=== PATIENT | male | born 2000 | race Caucasian/White ===

== ENCOUNTER → 2020-11-17 10:18 | Outpatient (BNVA) | payer OTHER, SELFPAY | PROVIDERS: PCP Nurse Practitioner; Visit Provider Nurse Practitioner Family | DX: Z20.822 Contact with and (suspected) exposure to COVID-19 (principal) | CPT/HCPCS: 87635 ==

== ENCOUNTER 2021-07-04 12:53 | Emergency (ER) | payer OTHER, SELFPAY ==
[2021-07-04 13:27] VITALS: BP 104/61; PULSE 106; RESP 16; TEMP 37.1; O2SAT 98; BMI 17.6
--- NOTE | 2021-07-04 13:56 | CTR_ITS ---
PROCEDURE INFORMATION: Exam: CT Abdomen And Pelvis With Contrast Exam date and time: 07/04/2021 2:11 PM Age: 20 years old Clinical indication: Nausea and vomiting and other: Diarrhea; Additional info: N/v/fever/diarrhea abdominal pain TECHNIQUE: Imaging protocol: Computed tomography of the abdomen and pelvis with contrast. Radiation optimization: All CT scans at this facility use at least one of these dose optimization techniques: automated exposure control; mA and/or kV adjustment per patient size (includes targeted exams where dose is matched to clinical indication); or iterative reconstruction. Contrast material: OMNIPAQUE 300; Contrast volume: 50 ml; Contrast route: INTRAVENOUS (IV); COMPARISON: No relevant prior studies available. RADIATION DOSE METRICS: Total DLP (mGy-cm): 674.57 FINDINGS: Liver: Normal. No mass. Gallbladder and bile ducts: Normal. No calcified stones. No ductal dilation. Pancreas: Normal. No ductal dilation. Spleen: Normal. No splenomegaly. Adrenal glands: Normal. No mass. Kidneys and ureters: No hydronephrosis. No mass. Stomach and bowel: No obstruction. No inflammatory changes. Evaluation somewhat limited by lack of enteric contrast. Appendix: No evidence of appendicitis. Intraperitoneal space: No free air. No significant fluid collection. Vasculature: Unremarkable. No abdominal aortic aneurysm. Lymph nodes: Unremarkable. No enlarged lymph nodes. Urinary bladder: Unremarkable as visualized. Reproductive: Unremarkable as visualized. Bones/joints: Unremarkable. No acute fracture. Soft tissues: Unremarkable. CT/CT abdomen pelvis w con* [id number] IMPRESSION: No acute findings.
--- NOTE | 2021-07-04 13:57 | ED_ITS ---
Documented by User: Coni Sparks PA-C 07/04/21 15:13 HPI - Abdominal Pain General: Chief Complaint: Abdominal Pain Stated Complaint: Urgent care sent over for possible appendicitis Time Seen by Provider: 07/04/21 13:41 Source: patient Mode of arrival: ambulatory Limitations: no limitations History of Present Illness: 20-year-old male presents to the ER today for abdominal pain, nausea, vomiting x16 hours. Patient reports this started about 6 PM last night. Patient reports he has vomited multiple times since last night. He has not eaten anything since yesterday afternoon. Patient reports abdominal pain is located in the center of his abdomen but denies any radiation. Patient reports he has watery diarrhea. Denies any sick contacts. Patient has not take anything for symptoms at this time. Patient reports a fever of 100.7 this morning. Patient was seen at an urgent care and sent to the ER to rule out appendicitis. Review of Systems General: Reports: 10 or more systems reviewed and unremarkable except in HPI and below PFSH ED 2 PFSH: Social History Smoking and tobacco status: never smoked Physical Exam Const: COMMON NORMALS: no acute distress, average body habitus, patient or iented x3 and no limitations Neck/C-Spine: COMMON NORMALS: full ROM and no lymphadenopathy Resp: COMMON NORMALS: normal respiratory effort, No retractions and clear to auscultation bilaterally AUSCULTATION: clear to auscultation bilaterally Cardio: COMMON NORMALS: regular rate and regular rhythm RATE: regular rate RHYTHM: regular rhythm HEART SOUNDS: no murmurs GI: COMMON NORMALS: Soft to palpation and No hepatosplenomegaly present INSPECTION: Yes normal to inspection AUSCULTATION: Yes normoactive bowel sounds PALPATION: Yes Soft to palpation, Yes Tenderness to palpation present (GI) (mild diffuse), No Guarding due to palpation present (GI), Yes No hepatosplenomegaly present and Yes Other GI palpation findings present (Negative psoas, negative obturator, negative foot tap. No rebound tenderne) : COMMON NORMALS: Yes no CVA tenderness BLADDER/KIDNEY EXAM: Yes no CVA tenderness Back/Pelvis: COMMON NORMALS: no CVA tenderness Extremity: COMMON NORMALS: full ROM Neuro: COMMON NORMALS: patient oriented x3 Psych: COMMON NORMALS: mental status grossly normal Skin: COMMON NORMALS: no rashes or lesions noted GENERAL SKIN EXAM: no rashes or lesions noted Course ED course: 20-year-old male presents to the ER today with abdominal pain that started last night along with nausea, vomiting, diarrhea. Patient was seen at urgent care and they sent him to the ER for evaluation of appendicitis. Patient reports a temp of 100.7 today. He reports multiple episodes of vomiting and watery diarrhea. Patient reports his abdominal pain is located in the center of his abdomen and denies any radiating pain. Patient reports pain is slightly worse with movement. We will get labs and a CT of the abdomen pelvis. Vital Signs: Vital signs: Vital Signs Temperature 98.8 F 07/04/21 13:27 Pulse Rate 93 07/04/21 15:25 Respiratory Rate 20 H 07/04/21 15:25 Blood Pressure 116/68 07/04/21 15:25 Pulse Oximetry 98 07/04/21 15:25 MDM - Abdominal Pain Medical Decision Making 20-year-old male presents to the ER today for nausea, vomiting, abdominal pain, fevers x16 hours. Patient reports this started at 6 PM last night. He has had multiple episodes of vomiting and watery diarrhea. Patient reports a low-grade temp of 100.7 this morning. Patient was seen in urgent care and sent here to rule out appendicitis. CT abdomen and pelvis done in the ER is normal at this time. Labs are mostly unremarkable. Patient has a slightly bumped CRP however that is likely related to the viral illness. Otherwise mostly unremarkable. Discussed with patient likely this is viral. Bananas rice applesauce toast, brat diet recommended. Push clear fluids and/or Gatorade to rehydrate. Follow- up with PCP in 2 to 3 days if no improvement. Return to the ER with new or worsening symptoms. Patient be given Zofran to take home for nausea as needed. Patient verbalized understanding and is in agreement with the treatment plan. Lab Data : 07/04/21 13:58 07/04/21 13:58 Labs/Radiology: Radiology Impressions Abdomen/Pelvis CT 07/04/21 13:56 IMPRESSION: No acute findings. Laboratory Results WBC 9.9 10^3/uL (4.5-13.0) 07/04/21 13:58 RBC 5.88 10^6/uL (4.1-5.3) H 07/04/21 13:58 Hgb 17.4 g/dL (11.7-16.6) H 07/04/21 13:58 Hct 51.1 % (42.0-52.0) 07/04/21 13:58 MCV 86.9 fl (80-94) 07/04/21 13:58 MCH 29.6 pg (28.0-34.0) 07/04/21 13:58 MCHC 34.1 g/dL (30.0-36.0) 07/04/21 13:58 RDW 12.4 % (12.1-15.1) 07/04/21 13:58 Plt Count 217 10^3/cmm (130-400) 07/04/21 13:58 MPV 10.2 fL (7.4-10.4) 07/04/21 13:58 Neut % (Auto) 89.0 % 07/04/21 13:58 Lymph % (Auto) 2.7 % 07/04/21 13:58 [place] % (Auto) 7.6 % 07/04/21 13:58 Eos % (Auto) 0.1 % 07/04/21 13:58 Baso % (Auto) 0.2 % 07/04/21 13:58 Neut # (Auto) 8.79 10^3/uL (1.8-8.0) H 07/04/21 13:58 Lymph # (Auto) 0.3 10^3/uL (1.5-6.5) L 07/04/21 13:58 [place] # (Auto) 0.8 10^3/uL (0.2-0.9) 07/04/21 13:58 Eos # (Auto) 0.0 10^3/uL (0.0-0.8) 07/04/21 13:58 Baso # (Auto) 0.0 10^3/uL (0.0-0.1) 07/04/21 13:58 Nucleated RBC % (auto) 0 % 07/04/21 13:58 Nucleated RBCs # 0.0 /100WBC 07/04/21 13:58 Sodium 140 mmol/L (136-145) 07/04/21 13:58 Potassium 3.7 mmol/L (3.5-5.1) 07/04/21 13:58 Chloride 104 mmol/L (98-107) 07/04/21 13:58 Carbon Dioxide 24 mmol/L (22-29) 07/04/21 13:58 Anion Gap 15.7 (5-19) 07/04/21 13:58 BUN 16 mg/dL (6-20) 07/04/21 13:58 Creatinine 0.9 mg/dL (0.7-1.2) 07/04/21 13:58 GFR Calculation 107.6 mL/min (90-130) 07/04/21 13:58 Glucose 124 mg/dL (65-115) H 07/04/21 13:58 Calculated Osmolality 293 mOsm/kg (285-295) 07/04/21 13:58 Calcium 9.0 mg/dL (8.5-10.5) 07/04/21 13:58 Total Bilirubin 0.6 mg/dL (0.15-1.2) 07/04/21 13:58 AST 10 U/L (0-40) 07/04/21 13:58 ALT 20 U/L (0-41) 07/04/21 13:58 Alkaline Phosphatase 47 IU/L (40-130) 07/04/21 13:58 C-Reactive Protein 21.5 mg/L (0.0-4.9) H 07/04/21 13:58 Total Protein 5.0 g/dL (6.6-8.7) L 07/04/21 13:58 Albumin 3.3 g/dL (3.5-5.2) L 07/04/21 13:58 Globulin 1.7 g/dL (1.3-4.6) 07/04/21 13:58 Lipase 22 U/L (13-60) 07/04/21 13:58 Urine Color Yellow (Yellow) 07/04/21 15:20 Urine Appearance Clear (CLEAR) 07/04/21 15:20 Urine pH 5 (5-7) 07/04/21 15:20 Ur Specific [place] 1.020 (1.005-1.030) 07/04/21 15:20 Urine Protein Trace (Negative) 07/04/21 15:20 Urine Glucose (UA) Norm (Normal) 07/04/21 15: Urine Ketones Negative (Negative) 05/15/22 15:20 Urine Blood Neg (Negative) 07/04/21 15:20 Urine Nitrate Negative (Negative) 07/04/21 15:20 Urine Bilirubin 1+ (Negative) H 07/04/21 15:20 Urine Urobilinogen Norm mg/dL (Negative) 07/04/21 15:20 Ur Leukocyte Esterase Negative (Negative) 07/04/21 15:20 Urine RBC None /hpf (0-2) 07/04/21 15:20 Urine WBC None /hpf (0-5) 07/04/21 15:20 Ur Squamous Epith Cells Rare /hpf (0-5) 07/04/21 15:20 Amorphous Sediment Not Reportable 07/04/21 15:20 Urine Bacteria Trace /hpf (NONE) 07/04/21 15:20 Urine Mucus 2+ /hpf 07/04/21 15:20 Critical Care Time Critical Care Time: Critical Care Time: No Discharge Plan Discharge Patient Disposition: Home Clinical Impression: Gastroenteritis Condition: Stable Prescriptions: New ondansetron HCl 4 mg tablet 4 mg PO Q8H PRN (Reason: nausea and vomiting) 3 Days 0RF Discharge Orders: Discharge ED (Routine); Ordered 07/04/21 Ordered By: Coni Sparks Discharge Diet: Advance as tolerated Discharge Activity: Increase activity as tolerated Activity Restrictions/Additional Instructions: Take Zofran as needed for nausea. Brat diet recommended. Bananas rice applesauce toast. Gage diet. Push fluids as tolerated, Gatorade and water recommended. Avoid sugary drinks like sodas. Follow-up with PCP in 3 to 5 days if no improvement. Do not take any antidiarrheals. Return to the ER with new or worsening symptoms. Stand Alone Forms: Work/School Release Coding Level of Care Code ED Spanish Instructor for Chg Fwd Exam Comprehensive Documented by User: Adriano Castro MD 07/05/21 23:08 HPI - Abdominal Pain General: Chief Complaint: Abdominal Pain Stated Complaint: Urgent care sent over for possible appendicitis Time Seen by Provider: 07/04/21 13:41 [facility] ED PFS: Social History Smoking and tobacco status: never smoked Course Vital Signs: Vital signs: Vital Signs Temperature 98.8 F 07/04/21 13:27 Pulse Rate 93 07/04/21 15:25 Respiratory Rate 20 H 07/04/21 15:25 Blood Pressure 116/68 07/04/21 15:25 Pulse Oximetry 98 07/04/21 15:25 MDM - Abdominal Pain Medical Decision Making 20-year-old male presents to the ER today for nausea, vomiting, abdominal pain, fevers x16 hours. Patient reports this started at 6 PM last night. He has had multiple episodes of vomiting and watery diarrhea. Patient reports a low-grade temp of 100.7 this morning. Patient was seen in urgent care and sent here to rule out appendicitis. CT abdomen and pelvis done in the ER is normal at this time. Labs are mostly unremarkable. Patient has a slightly bumped CRP however that is likely related to the viral illness. Otherwise mostly unremarkable. Discussed with patient likely this is viral. Bananas rice applesauce toast, brat diet recommended. Push clear fluids and/or Gatorade to rehydrate. Follow- up with PCP in 2 to 3 days if no improvement. Return to the ER with new or worsening symptoms. Patient be given Zofran to take home for nausea as needed. Patient verbalized understanding and is in agreement with the treatment plan. Dr. Castro - Patient evaluation, diagnosis, and management was performed independe ntly by Coni Sparks. I did not personally see the patient nor staff the patient with patient's provider. I did review the patient's note today and I believe this note is consistent. Lab Data : 07/04/21 13:58 07/04/21 13:58 Labs/Radiology: Radiology Impressions Abdomen/Pelvis CT 07/04/21 13:56 IMPRESSION: No acute findings. Laboratory Results WBC 9.9 10^3/uL (4.5-13.0) 07/04/21 13:58 RBC 5.88 10^6/uL (4.1-5.3) H 07/04/21 13:58 Hgb 17.4 g/dL (11.7-16.6) H 07/04/21 13:58 Hct 51.1 % (42.0-52.0) 07/04/21 13:58 MCV 86.9 fl (80-94) 07/04/21 13:58 MCH 29.6 pg (28.0-34.0) 07/04/21 13:58 MCHC 34.1 g/dL (30.0-36.0) 07/04/21 13:58 RDW 12.4 % (12.1-15.1) 07/04/21 13:58 Plt Count 217 10^3/cmm (130-400) 07/04/21 13:58 MPV 10.2 fL (7.4-10.4) 07/04/21 13:58 Neut % (Auto) 89.0 % 07/04/21 13:58 Lymph % (Auto) 2.7 % 07/04/21 13:58 [place] % (Auto) 7.6 % 07/04/21 13:58 Eos % (Auto) 0.1 % 07/04/21 13:58 Baso % (Auto) 0.2 % 07/04/21 13:58 Neut # (Auto) 8.79 10^3/uL (1.8-8.0) H 07/04/21 13:58 Lymph # (Auto) 0.3 10^3/uL (1.5-6.5) L 07/04/21 13:58 [place] # (Auto) 0.8 10^3/uL (0.2-0.9) 07/04/21 13:58 Eos # (Auto) 0.0 10^3/uL (0.0-0.8) 07/04/21 13:58 Baso # (Auto) 0.0 10^3/uL (0.0-0.1) 07/04/21 13:58 Nucleated RBC % (auto) 0 % 07/04/21 13:58 Nucleated RBCs # 0.0 /100WBC 07/04/21 13:58 Sodium 140 mmol/L (136-145) 07/04/21 13:58 Potassium 3.7 mmol/L (3.5-5.1) 07/04/21 13:58 Chloride 104 mmol/L (98-107) 07/04/21 13:58 Carbon Dioxide 24 mmol/L (22-29) 07/04/21 13:58 Anion Gap 15.7 (5-19) 07/04/21 13:58 BUN 16 mg/dL (6-20) 07/04/21 13:58 Creatinine 0.9 mg/dL (0.7-1.2) 07/04/21 13:58 GFR Calculation 107.6 mL/min (90-130) 07/04/21 13:58 Glucose 124 mg/dL (65-115) H 07/04/21 13:58 Calculated Osmolality 293 mOsm/kg (285-295) 07/04/21 13:58 Calcium 9.0 mg/dL (8.5-10.5) 07/04/21 13:58 Total Bilirubin 0.6 mg/dL (0.15-1.2) 07/04/21 13:58 AST 10 U/L (0-40) 07/04/21 13:58 ALT 20 U/L (0-41) 07/04/21 13:58 Alkaline Phosphatase 47 IU/L (40-130) 07/04/21 13:58 C-Reactive Protein 21.5 mg/L (0.0-4.9) H 07/04/21 13:58 Total Protein 5.0 g/dL (6.6-8.7) L 07/04/21 13:58 Albumin 3.3 g/dL (3.5-5.2) L 07/04/21 13:58 Globulin 1.7 g/dL (1.3-4.6) 07/04/21 13:58 Lipase 22 U/L (13-60) 07/04/21 13:58 Urine Color Yellow (Yellow) 07/04/21 15:20 Urine Appearance Clear (CLEAR) 07/04/21 15:20 Urine pH 5 (5-7) 07/04/21 15:20 Ur Specific [place] 1.020 (1.005-1.030) 07/04/21 15:20 Urine Protein Trace (Negative) 07/04/21 15:20 Urine Glucose (UA) Norm (Normal) 07/04/21 15:20 Urine Ketones Negative (Negative) 07/04/21 15:20 Urine Blood Neg (Negative) 07/04/21 15:20 Urine Nitrate Negative (Negative) 07/04/21 15:20 Urine Bilirubin 1+ (Negative) H 07/04/21 15:20 Urine Urobilinogen Norm mg/dL (Negative) 07/04/21 15:20 Ur Leukocyte Esterase Negative (Negative) 07/04/21 15:20 Urine RBC None /hpf (0-2) 07/04/21 15:20 Urine WBC None /hpf (0-5) 07/04/21 15:20 Ur Squamous Epith Cells Rare /hpf (0-5) 07/04/21 15:20 Amorphous Sediment Not Reportable 07/04/21 15:20 Urine Bacteria Trace /hpf (NONE) 07/04/21 15:20 Urine Mucus 2+ /hpf 07/04/21 15:20 Discharge Plan Discharge Patient Disposition: Home Clinical Impression: Gastroenteritis Condition: Stable Prescriptions: New ondansetron HCl 4 mg tablet 4 mg PO Q8H PRN (Reason: nausea and vomiting) 3 Days 0RF Discharge Orders: Discharge ED (Routine); Ordered 07/04/21 Ordered By: Coni Sparks Discharge Diet: Advance as tolerated Discharge Activity: Increase activity as tolerated Activity Restrictions/Additional Instructions: Take Zofran as needed for nausea. Brat diet recommended. Bananas rice applesauce toast. Gage diet. Push fluids as tolerated, Gatorade and water r ecommended. Avoid sugary drinks like sodas. Follow-up with PCP in 3 to 5 days if no improvement. Do not take any antidiarrheals. Return to the ER with new or worsening symptoms. Stand Alone Forms: Work/School Release Coding Level of Care Code ED Spanish Instructor for [employer] Fwd Exam Comprehensive
[2021-07-04 14:11] LABS: Basophils % 0.2 %; Eosinophils % 0.1 %; Hematocrit 51.1 % (42.0-52.0); Hemoglobin 17.4 g/dL (11.7-16.6); Lymphocytes # 0.3 10^3/uL (1.5-6.5); Lymphocytes % 2.7 %; Mean Corpuscular HGB Conc 34.1 g/dL (30.0-36.0); Mean Corpuscular Hemoglobin 29.6 pg (28.0-34.0); Mean Corpuscular Volume 86.9 fl (80-94); Mean Platelet Volume 10.2 fL (7.4-10.4); Monocytes # 0.8 10^3/uL (0.2-0.9); Monocytes % 7.6 %; Neutrophils # 8.79 10^3/uL (1.8-8.0); Nucleated Red Blood Cells % 0 %; Platelet Count 217 10^3/cmm (130-400); Red Blood Count 5.88 10^6/uL (4.1-5.3); Red Cell Distribution Width 12.4 % (12.1-15.1); White Blood Count 9.9 10^3/uL (4.5-13.0)
[2021-07-04] MEDS: iohexol 300 mg/mL 100 mL Btl IV (14:12)
[2021-07-04 14:32] LABS: Alanine Aminotransferase 20 U/L (0-41); Albumin Level 3.3 g/dL (3.5-5.2); Alkaline Phosphatase 47 IU/L (40-130); Anion Gap 15.7 (5-19); Aspartate Amino Transferase 10 U/L (0-40); Blood Urea Nitrogen 16 mg/dL (6-20); C Reactive Protein 21.5 mg/L (0.0-4.9); Carbon Dioxide 24 mmol/L (22-29); Chloride 104 mmol/L (98-107); Globulin 1.7 g/dL (1.3-4.6); Glomerular Filtration Rate 107.6 mL/min (90-130); Glucose 124 mg/dL (65-115); Lipase 22 U/L (13-60); Osmolality Calculated 293 mOsm/kg (285-295); Potassium 3.7 mmol/L (3.5-5.1); Sodium 140 mmol/L (136-145); Total Bilirubin 0.6 mg/dL (0.15-1.2)
[2021-07-04 15:25] VITALS: BP 116/68; PULSE 93; RESP 20; O2SAT 98
[2021-07-04 15:42] LABS: Add Urine Microscopic? YES; Bilirubin Urine 1+ (Negative); Blood Urine Neg (Negative); Glucose Urine UA Norm (Normal); Ketones Urine Negative (Negative); Leukocyte Esterase Urine Negative (Negative); Nitrate Urine Negative (Negative); Protein Urine Trace (Negative); Urine Appearance Clear (CLEAR); Urine Color Yellow (Yellow); Urobilinogen Urine Norm (Negative); pH Urine 5 (5-7)
[2021-07-04 15:44] LABS: Bacteria Urine TRACE /hpf; Mucus Urine 2+ /hpf; Squamous Epithelial Cell Urine RARE /hpf (0-5)
[2021-07-04 15:45] LABS: Add Urine Culture? No
== END 2021-07-04 15:28 | disposition home or self-care (01) ==
PROVIDERS: Emergency Medicine; Emergency Provider Physician Assistant
DX: K52.9 Noninfective gastroenteritis and colitis, unspecified (principal)
CPT/HCPCS: 74177; 80053; 81001; 83690; 85025; 86140; 99283; Q9967

== ENCOUNTER 2024-11-22 10:09 | Inpatient (IN) | payer OTHER, SELFPAY ==
--- NOTE | 2024-11-22 10:28 | W.ED.PSYCHS ---
Documented by User: MARY Morris 11/22/24 11:28 HPI - Psych General: Chief Complaint: Psychiatric Symptoms Stated Complaint: SI Source: patient and EMS Mode of arrival: EMS Limitations: no limitations History of Present Illness: Patient is a 24-year-old male presents to ED today via EMS along with a police affidavit for 96-hour hold. According to patient, he and his got into a verbal altercation this morning over minuscule things. He states at some point it escalated to the point where he did get a gun out . Patient states he never made suicidal or homicidal statements with a gun. According to the police affidavit, he held the gun to his head and said that he was tired. Patient tells me he is not suicidal or homicidal. He states he never had any intention of hurting himself or his . Patient states he has no psychiatric past medical history. He does not take any medications. He does have plans to start attending counseling/therapy with his first session scheduled for next Monday. MD complaint: other (aggressive behavior; suicidal behavior) Onset (ago): hour(s) Duration: resolved prior to arrival History of same: No Context: significant life stressor Associated psychiatric symptoms: none Associated symptoms: Reports no associated symptoms; Deny auditory hallucinations, visual hallucinations, depression, homicidal ideation or suicidal ideation Treatments prior to arrival: none Related Data Home Medications ?Medication ?Instructions ?Recorded ?Confirmed No Known Home Medications 11/30/21 11/22/24 Allergies Allergy/AdvReac Type Severity Reaction Status Date / Time No Known Allergies Allergy Verified 09/10/24 12:24 Review of Systems Const: Denies: fever(s) or chills Card: Denies: chest pain, palpitations, lightheadedness or syncope Resp: Denies: dyspnea GI: Denies: abdominal pain, nausea, vomiting or diarrhea Skin/Breast: Denies: rash Neuro: Denies: headache(s) Psych: Reports: irritability; Denies: anxiety, depression, visual hallucinations, auditory hallucinations, suicidal ideation or homicidal ideation [facility] ED PFSH: Medical History Psychiatric care Social History Smoking and tobacco/nicotine status: never used tobacco/nicotine Physical Exam Const: COMMON NORMALS: no acute distress, average body habitus, patient oriented x3, no limitations, healthy appearing, alert and well nourished GENERAL APPEARANCE: cooperative Resp: COMMON NORMALS: normal respiratory effort and clear to auscultation bilaterally AUSCULTATION: clear to auscultation bilaterally Cardio: COMMON NORMALS: regular rate and regular rhythm RATE: regular rate RHYTHM: regular rhythm Neuro: COMMON NORMALS: patient oriented x3 SENSORIUM/ORIENTATION: Yes alert Psych: COMMON NORMALS: mental status grossly normal, Normal thought process present, cooperative, speech normal, activity/motor behavior normal, denies hallucinations, denies homicidal ideation and denies suicidal ideation APPEARANCE: Yes grossly normal ATTITUDE: Yes calm ACTIVITY/MOTOR BEHAVIOR: Yes appropriate eye contact and No psychomotor agitation SPEECH: Yes normal speech MOOD & AFFECT: Yes tearful (at times) THOUGHT PROCESS: Normal thought process present THOUGHT CONTENT: Yes Normal thought content present MEMORY/COGNITION: Yes memory grossly intact and Yes cognition grossly intact INSIGHT: Good insight present (Psych) JUDGEMENT: Good judgement present (Psych) Course Consultations: Consultation #1: Dr. Sethi-accepts to NPU Vital Signs: Vital signs: Vital Signs Temperature 98.6 F 11/22/24 11:07 Pulse Rate 63 11/22/24 11:17 Respiratory Rate 20 H 11/22/24 11:07 Blood Pressure 116/72 11/22/24 11:17 Pulse Oximetry 98 11/22/24 11:17 Oxygen Delivery Me thod Room Air 11/22/24 11:09 MDM - Psych Medical Decision Making Patient will be placed on a 96-hour hold. He will an admit to NPU to Dr. Sethi. Medical Records I reviewed the patient's medical records. Lab Data I reviewed the patient's lab results. 11/22/24 10:27 11/22/24 10:27 Laboratory Results WBC 3.79 10^3/uL (3.29-11.43) 11/22/24 10:27 RBC 5.68 10^6/uL (3.85-5.65) H 11/22/24 10:27 Hgb 16.80 g/dL (11.27-16.99) 11/22/24 10:27 Hct 49.7 % (37-53) 11/22/24 10:27 MCV 87.5 fl (82-101) 11/22/24 10: MCH 29.6 pg (27-33) 11/22/24 10: MCHC 33.8 g/dL (30-55) 11/22/24 10: RDW 12.0 % (12.1-15.1) L 11/22/24 10:27 Plt Count 216 10^3/cmm (157-399) 11/22/24 10: MPV 10.1 fL (7.4-10.4) 11/22/24 10:27 Neut % (Auto) 61.2 % 11/22/24 10:27 Lymph % (Auto) 25.3 % 11/22/24 10:27 Preston % (Auto) 10.3 % 11/22/24 10:27 Eos % (Auto) 1.8 % 11/22/24 10:27 Baso % (Auto) 1.1 % 11/22/24 10: Neut # (Auto) 2.32 10^3/uL (1.8-7.7) 11/22/24 10:27 Lymph # (Auto) 1.0 10^3/uL (0.8-4.8) 11/22/24 10:27 Preston # (Auto) 0.4 10^3/uL (0.2-0.9) 11/22/24 10:27 Eos # (Auto) 0.1 10^3/uL (0.0-0.8) 11/22/24 10:27 Baso # (Auto) 0.0 10^3/uL (0.0-0.1) 11/22/24 10:27 Nucleated RBC % (auto) 0 % 11/22/24 10: Nucleated RBCs # 0.0 /100WBC 11/22/24 10:27 Sodium 141 mmol/L (136-145) 11/22/24 10: Potassium 4.0 mmol/L (3.5-5.1) 11/22/24 10: Chloride 105 mmol/L (98-107) 11/22/24 10: Carbon Dioxide 25 mmol/L (22-29) 11/22/24 10: Anion Gap 15.0 (5-19) 11/22/24 10: BUN 9 mg/dL (6-20) 11/22/24 10:27 Creatinine 1.0 mg/dL (0.7-1.2) 11/22/24 10:27 GFR Calculation 91.8 mL/min (90-130) 11/22/24 10:27 Glucose 106 mg/dL (65-115) 11/22/24 10:27 Calculated Osmolality 291 mOsm/kg (285-295) 11/22/24 10:27 Calcium 9.2 mg/dL (8.5-10.5) 11/22/24 10:27 Total Bilirubin 0.4 mg/dL (0.15-1.2) 11/22/24 10:27 AST 8 U/L (0-40) 11/22/24 10:27 ALT 12 U/L (0-41) 11/22/24 10:27 Alkaline Phosphatase 49 U/L (40-130) 11/22/24 10:27 Total Protein 6.2 g/dL (6.6-8.7) L 11/22/24 10:27 Albumin 4.3 g/dL (3.5-5.2) 11/22/24 10:27 Globulin 1.9 g/dL (1.3-4.6) 11/22/24 10:27 Salicylates < 0.3 mg/dL (3-10) L 11/22/24 10:27 Urine Opiates Screen Negative ng/mL (Negative) 11/22/24 10:40 Acetaminophen < 5.0 ug/mL (10-30) L 11/22/24 10:27 Ur Barbiturates Screen Negative ng/mL (Negative) 11/22/24 10:40 Ur Phencyclidine Scrn Negative ng/mL (Negative) 11/22/24 10:40 Ur Amphetamines Screen Negative ng/mL (Negative) 11/22/24 10:40 U Benzodiazepines Scrn Negative ng/mL (Negative) 11/22/24 10:40 Urine Cocaine Screen Negative ng/mL (Negative) 11/22/24 10:40 U Marijuana (THC) Screen Negative ng/mL (Negative) 11/22/24 10:40 Ethyl Alcohol < 10 mg/dL (0-10) 11/22/24 10:27 No radiology studies performed this visit Discharge Plan Discharge Patient Disposition: Admitted As Inpatient Admit Provider: Tio Sethi Clinical Impression: Aggressive behavior, Passive suicidal ideations Condition: Stable Coding Level of Care Code ED Platform Operations Director for Jorjeg Fwd Documented by User: Suni Dillard MD 11/22/24 11:56 HPI - Psych General: Chief Complaint: Psychiatric Symptoms Stated Complaint: SI Related Data Home Medications ?Medication ?Instructions ?Recorded ?Confirmed No Known Home Medications 11/30/21 11/22/24 Allergies Allergy/AdvReac Type Severity Reaction Status Date / Time No Known Allergies Allergy Verified 09/10/24 12:24 PFS ED PFSH: Medical History Psychiatric care Social History Smoking and tobacco/nicotine status: never used tobacco/nicotine Course Vital Signs: Vital signs: Vital Signs Temperature 98.6 F 11/22/24 11:07 Pulse Rate 63 11/22/24 11:17 Respiratory Rate 20 H 11/22/24 11:07 Blood Pressure 116/72 11/22/24 11:17 Pulse Oximetry 98 11/22/24 11:17 Oxygen Delivery Me thod Room Air 11/22/24 11:09 MDM - Psych Medical Decision Making Patient will be placed on a 96-hour hold. He will an admit to NPU to Dr. Sethi I discussed case with above midlevel and agree with her history and physical. Patient is actively suicidal and was placed under 96-hour hold. He has had no overdose attempts did review his labs all within normal limits patient will be admitted to the psych unit to Dr. Sethi he is medically cleared at this time. Lab Data 11/22/24 10:27 11/22/24 10:27 Laboratory Results WBC 3.79 10^3/uL (3.29-11.43) 11/22/24 10:27 RBC 5.68 10^6/uL (3.85-5.65) H 11/22/24 10:27 Hgb 16.80 g/dL (11.27-16.99) 11/22/24 10:27 Hct 49.7 % (37-53) 11/22/24 10: MCV 87.5 fl (82-101) 11/22/24 10:27 MCH 29.6 pg (27-33) 11/22/24 10: MCHC 33.8 g/dL (30-55) 11/22/24 10:27 RDW 12.0 % (12.1-15.1) L 11/22/24 10:27 Plt Count 216 10^3/cmm (157-399) 11/22/24 10: MPV 10.1 fL (7.4-10.4) 11/22/24 10:27 Neut % (Auto) 61.2 % 11/22/24 10:27 Lymph % (Auto) 25.3 % 11/22/24 10:27 Preston % (Auto) 10.3 % 11/22/24 10:27 Eos % (Auto) 1.8 % 11/22/24 10:27 Baso % (Auto) 1.1 % 11/22/24 10:27 Neut # (Auto) 2.32 10^3/uL (1.8-7.7) 11/22/24 10:27 Lymph # (Auto) 1.0 10^3/uL (0.8-4.8) 11/22/24 10:27 Preston # (Auto) 0.4 10^3/uL (0.2-0.9) 11/22/24 10:27 Eos # (Auto) 0.1 10^3/uL (0.0-0.8) 11/22/24 10:27 Baso # (Auto) 0.0 10^3/uL (0.0-0.1) 11/22/24 10:27 Nucleated RBC % (auto) 0 % 11/22/24 10: Nucleated RBCs # 0.0 /100WBC 11/22/24 10:27 Sodium 141 mmol/L (136-145) 11/22/24 10: Potassium 4.0 mmol/L (3.5-5.1) 11/22/24 10:27 Chloride 105 mmol/L (98-107) 11/22/24 10:27 Carbon Dioxide 25 mmol/L (22-29) 11/22/24 10:27 Anion Gap 15.0 (5-19) 11/22/24 10:27 BUN 9 mg/dL (6-20) 11/22/24 10:27 Creatinine 1.0 mg/dL (0.7-1.2) 11/22/24 10:27 GFR Calculation 91.8 mL/min (90-130) 11/22/24 10:27 Glucose 106 mg/dL (65-115) 11/22/24 10:27 Calculated Osmolality 291 mOsm/kg (285-295) 11/22/24 10:27 Calcium 9.2 mg/dL (8.5-10.5) 11/22/24 10:27 Total Bilirubin 0.4 mg/dL (0.15-1.2) 11/22/24 10:27 AST 8 U/L (0-40) 11/22/24 10:27 ALT 12 U/L (0-41) 11/22/24 10:27 Alkaline Phosphatase 49 U/L (40-130) 11/22/24 10:27 Total Protein 6.2 g/dL (6.6-8.7) L 11/22/24 10:27 Albumin 4.3 g/dL (3.5-5.2) 11/22/24 10:27 Globulin 1.9 g/dL (1.3-4.6) 11/22/24 10:27 Salicylates < 0.3 mg/dL (3-10) L 11/22/24 10:27 Urine Opiates Screen Negative ng/mL (Negative) 11/22/24 10:40 Acetaminophen < 5.0 ug/mL (10-30) L 11/22/24 10:27 Ur Barbiturates Screen Negative ng/mL (Negative) 11/22/24 10:40 Ur Phencyclidine Scrn Negative ng/mL (Negative) 11/22/24 10:40 Ur Amphetamines Screen Negative ng/mL (Negative) 11/22/24 10:40 U Benzodiazepines Scrn Negative ng/mL (Negative) 11/22/24 10:40 Urine Cocaine Screen Negative ng/mL (Negative) 11/22/24 10:40 U Marijuana (THC) Screen Negative ng/mL (Negative) 11/22/24 10:40 Ethyl Alcohol < 10 mg/dL (0-10) 11/22/24 10:27 Discharge Plan Discharge Patient Disposition: Admitted As Inpatient Admit Provider: Tio Sethi Clinical Impression: Aggressive behavior, Passive suicidal ideations Condition: Stable Coding Level of Care Code ED Platform Operations Director for Raffi Beckham
[2024-11-22 10:35] LABS: Hematocrit 49.7 % (37-53); Hemoglobin 16.80 g/dL (11.27-16.99); Mean Corpuscular HGB Conc 33.8 g/dL (30-55); Mean Corpuscular Hemoglobin 29.6 pg (27-33); Mean Corpuscular Volume 87.5 fl (82-101); Nucleated Red Blood Cells % 0 %; Platelet Count 216 10^3/cmm (157-399); Red Blood Count 5.68 10^6/uL (3.85-5.65); White Blood Count 3.79 10^3/uL (3.29-11.43)
[2024-11-22 10:52] VITALS: BP 116/72; PULSE 65; RESP 18; TEMP 36.7; O2SAT 98
[2024-11-22 10:52] LABS: Alanine Aminotransferase 12 U/L (0-41); Albumin Level 4.3 g/dL (3.5-5.2); Alkaline Phosphatase 49 U/L (40-130); Anion Gap 15.0 (5-19); Aspartate Amino Transferase 8 U/L (0-40); Blood Urea Nitrogen 9 mg/dL (6-20); Calcium 9.2 mg/dL (8.5-10.5); Carbon Dioxide 25 mmol/L (22-29); Chloride 105 mmol/L (98-107); Globulin 1.9 g/dL (1.3-4.6); Glucose 106 mg/dL (65-115); Osmolality Calculated 291 mOsm/kg (285-295); Potassium 4.0 mmol/L (3.5-5.1); Sodium 141 mmol/L (136-145); Total Protein 6.2 g/dL (6.6-8.7)
[2024-11-22 10:54] LABS: Acetaminophen < 5.0 ug/mL (10-30); Alcohol Level < 10 mg/dL (0-10); Salicylate < 0.3 mg/dL (3-10)
[2024-11-22 10:58] LABS: PCP Screen Urine Negative (Negative)
[2024-11-22 11:07] VITALS: BP 116/66; PULSE 66; RESP 20; TEMP 37; O2SAT 100
[2024-11-22 11:17] VITALS: BP 116/72; PULSE 63; O2SAT 98
[2024-11-22 14:00] VITALS: BP 117/75; PULSE 69; RESP 18; O2SAT 100
[2024-11-22 20:10] VITALS: BP 104/61; PULSE 86; RESP 17; TEMP 36.6; O2SAT 100
[2024-11-23 06:00] VITALS: BP 100/57; PULSE 88; RESP 17; TEMP 36.8; O2SAT 100
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
[2024-11-23 13:38] VITALS: BP 116/74; PULSE 76; RESP 16; O2SAT 98
[2024-11-23 20:08] VITALS: BP 107/65; PULSE 79; RESP 17; TEMP 36.6; O2SAT 99
[2024-11-24 06:00] VITALS: BP 98/60; PULSE 95; RESP 17; TEMP 37; O2SAT 100; BMI 20.4
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
[2024-11-24 13:11] VITALS: BP 109/73; PULSE 79; RESP 16; TEMP 36.5; O2SAT 99
[2024-11-24 21:00] VITALS: BP 113/67; PULSE 78; RESP 18; TEMP 36.6; O2SAT 100
[2024-11-25 06:00] VITALS: BP 107/63; PULSE 73; RESP 18; TEMP 36.5; O2SAT 100
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
[2024-11-25 14:00] VITALS: BP 113/73; PULSE 96; RESP 16; TEMP 36.6; O2SAT 99
[2024-11-25 19:50] VITALS: BP 112/75; PULSE 68; RESP 16; TEMP 36.6; O2SAT 98
[2024-11-26 06:00] VITALS: BP 126/71; PULSE 83; RESP 16; TEMP 36.6; O2SAT 98
[2024-11-26 14:00] VITALS: BP 111/74; PULSE 77; RESP 16; TEMP 36.8; O2SAT 98
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
[2024-11-26 20:25] VITALS: BP 104/66; PULSE 68; RESP 18; TEMP 36.5; O2SAT 98
[2024-11-27 06:00] VITALS: BP 112/66; PULSE 75; RESP 18; TEMP 36.8; O2SAT 98
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
[2024-11-27 13:11] VITALS: BP 124/78; PULSE 68; RESP 16; TEMP 36.5; O2SAT 99
[2024-11-27 21:59] VITALS: BP 118/75; PULSE 92; RESP 17; TEMP 36.7; O2SAT 98
[2024-11-28 06:00] VITALS: BP 103/68; PULSE 88; RESP 18; TEMP 36.9; O2SAT 98
--- NOTE | 2024-11-28 06:40 | P.NPUDS_ITS ---
Diagnoses at Discharge Discharge Diagnosis 1. Suicidal ideation: 2. Social anxiety disorder: 3. Generalized anxiety disorder: 4. Major depressive disorder, recurrent: 5. Marital/partner relational problem: Reason for Visit Reason for Visit: SI Brief History: HPI NPU History of Present Illness Nemesio Deluca is a 24 year old male who presented to the emergency department with the following report: Chief Complaint: Psychiatric Symptoms Stated Complaint: SI Source: patient and EMS Mode of arrival: EMS Limitations: no limitations History of Present Illness: Patient is a 24-year-old male presents to ED today via EMS along with a police affidavit for 96-hour hold. According to patient, he and his got into a verbal altercation this morning over minuscule things. He states at some point it escalated to the point where he did get a gun out . Patient states he never made suicidal or homicidal statements with a gun. According to the police affidavit, he held the gun to his head and said that he was tired. Patient tells me he is not suicidal or homicidal. He states he never had any intention of hurting himself or his . Patient states he has no psychiatric past medical history. He does not take any medications. He does have plans to start attending counseling/therapy with his first session scheduled for next Monday. MD complaint: other (aggressive behavior; suicidal behavior) Onset (ago): hour(s) Duration: resolved prior to arrival History of same: No Context: significant life stressor Associated psychiatric symptoms: none Associated symptoms: Reports no associated symptoms; Deny auditory hallucinations, visual hallucinations, depression, homicidal ideation or suicidal ideation Treatments prior to arrival: none. He was admitted to the neuropsychiatric unit for definitive treatment of those issues. He is unknown to [facility] psychiatry except for 1 outpatient assessment earlier this year. An excerpt of that note is included below for context and history and the fact that there have been no substantive changes. He presented to the emergency department with a negative UDS and an unremarkable BAL reporting: Chief complaint: Depression and anxiety. History of present illness: Patient presented to reporting no allergies to medications and no history of being on psychiatric medications. This was his first inpatient hospitalization and denied any outpatient services though there was a contact with [facility] and excerpt as below for historical relevance. As this was just less than 3 months ago. He denied tobacco, alcohol, marijuana or any other illicit drug use or treatment. He reports that he first experienced depression when he was in middle school. He reports he is probably a bit anxious much of his life reporting that his anxiety had a significant social component with him avoiding crowds and not being comfortable in situations where there are lots of people. He endorses depression was consistent with feelings of hopelessness helplessness worthlessness and sadness. He reports that he sometimes has difficulty with sleep during depressive episodes as well as having a tendency not to eat though he tends towards low food consumption in general. He endorses there have been times where he has had passive wish and maybe a couple times that he actually has been suicidal but there is never been an active furtherance. He did acknowledge that yesterday after the conflict had arisen with his that he did get his gun and at 1 point he did have a pointed towards his head very briefly. He reports that he does not want to and did not necessarily want to then but reports that he has had suicidal thoughts in his life. We discussed him being in the and there being a possible deployment in the [id number] future. 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 I believe [address]. He denies any history of paranoia, denies hearing voices and seeing things, and denied any history of nightmares or flashbacks or anything that he would identify as significant trauma. He did raise the possibility that basic training might have been a little traumatic but we discussed shared experiences in basic training and it was clear that what he meant was there was intense and challenging and there were no signs of trauma related to said experience. He denied any clear obsessive or compulsive behaviors and no sites of ramana or other psychosis. Past psychiatric history: As above. Substance abuse history: As above. Family history: Patient denied any significant history of mental health or dad side but reports that mom might have had depression or some mental health on her side. He denied any subs abuse history in the family on mom side but reports that dad side dad may have had alcohol use issues. He denied any history of suicide attempts or by suicide in his family. Developmental history: He denied any issues with his or delivery. He reports he learned to walk and talk about his developmental milestones on time. He denied any issues after attending school including need for speech therapy, learning support, emotional support or special education classes. He denies any history of a 504 plan or IEP for his memory. Psychosocial history: He reports his parents were together when he was born and he reports having an older half-sister both on his mother's and father's sides. He has 1 older brother who is his full sibling. He is the youngest of all the children. He denied neglect, emotional, physical or sexual abuse. He denied any child protective services involvement in his life. He denied ever living with someone other than one of his parents during his life denying any history of placement, foster care or anything of that nature. He graduated from high school and has no additional training other than the . He endorses being heterosexual with his longest relationship being over 3 years. He is and has a 3-year-old and [id number] boy and girl respectively. This marriage represents his longest relationship. He has been in the as stated above. 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 He currently lives in a house with his and 2 children. Legal history: Denied. Medical history: He denies any significant medical concerns in his life. Per his 09/10/2024 [facility] outpatient mental health assessment: [facility] Assessment Date of Service: 09/10/24 Time In: 12:00 Time Out: 12:40 Setting: Office Visit Is patient part of the 3700?: No Diagnosis 1. Major depressive disorder, recurrent, moderate: 2. Generalized anxiety disorder: This diagnosis is based on information provided by patient during initial examination(s). Diagnosis may change as additional information becomes available through course of treatment. Above diagnosis Should Not be used for any purposes other than as a working diagnosis for medical care of the patient, including determination of whether the patient?s condition is sufficiently acute to impair the patient?s ability to work or perform other routine tasks. History of Present Illness Presenting Problem/Chief Complaint: Nemesio reports I have been depressed. It's effecting my family life. I have been getting easily frustrated. The frustration leads to feeling of anger. When asked about what it looks like when he gets angry, he answered, I yell. I don't yell at anyone. I just yell Nemesio, 23 year old male present to the clinic today to complete an initial assessment to access therapy services at [facility]. 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 Current Psychiatric and Physical Symptoms:: Per symptoms checklist Nemesio endorses the following: sweating palms, fatigue, the mind goes blank, difficulty concentrating, trouble making decisions, trouble remembering, thoughts hard to dismiss, easily annoyed and irritability, nervous feeling, excessive worries and fears, excessive fears of crowds, no interests in things, feeling inferior, change in personality, thoughts of harming self. Nemesio scored 15 out of 27 on the PHQ-9 placing them in the moderatly severe range of depression. Per PHQ9 Nemesio reports over the last two weeks has experienced the following symptoms: Little Interest or Pleasure in doing things, Feeling down, depressed, or hopeless, Trouble falling or staying asleep, or sleeping too much, Feeling tired or having little energy, Feeling bad about yourself or that you are a failure or have let yourself or your family down, Trouble concentrating on things, such as reading the newspaper or watching television, Moving or speaking so slowly that other people could have noticed. Or the opposite being so fidgety or restless that you have been moving around a lot more than usual, Thoughts that you would be better off , or of hurting yourself. Renetta scored 11 out of 21 on the ANTONI-7 placing them in the modrate range of anxiety. Per GAD7 Nemesio reports over the last two weeks has experienced the following symptoms: Feeling nervous, anxious, or on edge, Not being able to stop or control worrying, Worrying too much about different things, Trouble relaxing, Being so restless that it is hard to sit still, Becoming easily annoyed or irritable, Feeling afraid as if something awful might happen. Nemesio stated he occasionally had thoughts he would be better off but had no plan or intent. He stated, they are just thoughts, I would never, I just feel bad sometimes. ACI information was reviewed with Nemesio. A safely plan was created by Nemesio and fourdrinier machine operator. Childhood and Family History Nemesio was born in [place]. His parents when he was in 1st grade. His parents shared custody 50/50. He would live a week with his father then live with his mother for a week. Since his father lived near [place], Nemesio attended [employer]. When it was his mother's week he would take a bus that traveled to [place]. Nemesio graduated high school in 2019 from [employer]. He attended [employer] for one semester. He then got a job in [place]. He has spent the last 2 1/2 years working at [employer] in [place]. He is also serves in the [employer]. He his in July 2020 after dating for 2 years. He has a 3 year old son and an 18 month old daughter. He is scheduled to be deployed by the [employer] next year, 2025. Abuse/Neglect/Trauma: None Current/historical developmental milestones and/or delays:: Normal developmental milestones Accommodations: None Family Psychiatric History: Anxiety and Depression (Father and Mother) Social History Current Living Environment: House/Apartment (Renting) Living environment is reported to be?: Good Reports Feeling: Safe Does patient need help completing personal and oral hygiene?: No Client?s interactions regarding social/peer relationships are: Isolative Vocational Information: Currently Employed Financial Information: Salary Client's employment History He has spent the last 2 1/2 years working at [employer] in [place]. He is also serves in the [employer]. He is scheduled to be deployed by the [employer] next year, 2025. Does client have valid refuse driver's license?: Yes History: Active Duty (achvr) Abilities/Interests I play video games watch movies. I play board games with my friends when I can. Individual's Strengths: Food, Stable Housing, Active Insurance, Cooperative, Sense of Humor, Seeks Treatment and Good Communication Individual's Obstacles: Other(Specify) (Lack of coping skills) Legal Status/History: Current legal issues denied Demographics Marital Status: Ethnicity: Spiritual Pursuits: Jew Do you think of yourself as: Straight/Heterosexual Gender Identity: Male What is your pronoun?: he/him/his Language(s) Spoken: Slovenian Custody/Guardianship Education Highest Education Level Reached: high school Academic Performance: Performance above grade level Extracurricular Activities: Other (Programing Club, [employer], Played Basketball) Special Accommodations: None Disciplinary Actions: Rare Health Is Patient in Pain?: No Primary Care Provider: No Have you been seen by your primary care provider or STAFF PHYSICAL THERAPY ASSISTANT in the past 12 months?: No Last Physical Exam: Within past year () Other Healthcare Providers Client's Medical History: None Reported Family Medical History: None Reported Home Medications - Last Reconciled 09/10/24 by Sudhir Wagner LPC No Known Home Medications Allergies No Known Allergies Allergy (Verified 09/10/24 12:24) Height: 5 ft 8 in Weight: 145 lb Body Mass Index: 22.0 BMI: Normal Weight= 18.5-24.9 Exercise Regularly?: Regular Nutritional Status: No referral needed Use of Complementary Health Approaches: None Treatment History Past Psychiatric Treatment: Yes I talked to someone about a year ago Perception of Past Treatment: It was helpful but it was over the phone. I stopped because I did not like doing it over the phone. Individual Preferences and Goals Expectation of Care: I want to be able to talk to someone about how I am feeling. I don't want to be depressed or angry. Clinical treatment goal: Nemesio will access therapy services to decrease symptoms of anxiety, depression and anger. Mental Status Exam Appearance: Anxious and Guarded Hygiene: Adequate hygiene Cooperation/Reliability: Cooperative Motor Activity: Calm Speech: Normal Thought Process: Intact Hallucinations: None Reported Delusions: None Judgement/Insight: Within Normal Limits Sensorium/Orientation: Alert and Person, Place, Time Memory: Intact Attention/Concentration: Good (On-Task 90%) Cognitive: Good Concentration and Good Judgement Affect: Appropriate Mood: Anxious and Depressed Attitude Toward Parent/Guardian: Not Applicable Summary of Assessment 1. Major depressive disorder, recurrent, moderate: 2. Generalized anxiety disorder: Rationale for Diagnosis/Assessment Formulation Nemesio, 23 year old male present to the clinic today to complete an initial assessment to access therapy services at [facility]. Nemesio reports I have been depressed. It's effecting my family life. I have been getting easily frustrated. The frustration leads to feeling of anger. When asked about what it looks like when he gets angry, he answered, I yell. I don't yell at anyone. I just yell. Nemesio arrived alone today and was dressed appropriately. Nemesio lives with his and his son who is 3 years old and daughter who is 18 months old. He has spent the last 2 1/2 years working at [employer] in [place]. He is also serves in the [employer]. He is scheduled to be deployed by the [employer] next year, 2025. Individual's Strengths: Food, Stable Housing, Active Insurance, Cooperative, Sense of Humor, Seeks Treatment and Good Communication. Individual's Obstacles: Lack of coping skills. Nemesio has access therapy briefly in the past through the . He sated he did help but he did not like having therapy over the phone. He is looking for a in-person therapist. Per symptoms checklist Nemesio endorses the following: sweating palms, fatigue, the mind goes blank, difficulty concentrating, trouble making decisions, trouble remembering, thoughts hard to dismiss, easily annoyed and irritability, nervous feeling, excessive worries and fears, excessive fears of crowds, no interests in things, feeling inferior, change in personality, thoughts of harming self. Nemesio scored 15 out of 27 on the PHQ-9 placing them in the moderatly severe range of depression. Per PHQ9 Nemesio reports over the last two weeks has experienced the following symptoms: Little Interest or Pleasure in doing things, Feeling down, depressed, or hopeless, Trouble falling or staying asleep, or sleeping too much, Feeling tired or having little energy, Feeling bad about yourself or that you are a failure or have let yourself or your family down, Trouble concentrating on things, such as reading the newspaper or watching television, Moving or speaking so slowly that other people could have noticed. Or the opposite being so fidgety or restless that you have been moving around a lot more than usual, Thoughts that you would be better off , or of hurting yourself. Renetta scored 11 out of 21 on the ANTONI-7 placing them in the modrate range of anxiety. Per GAD7 Nemesio reports over the last two weeks has experienced the following symptoms: Feeling nervous, anxious, or on edge, Not being able to stop or control worrying, Worrying too much about different things, Trouble relaxing, Being so restless that it is hard to sit still, Becoming easily annoyed or irritable, Feeling afraid as if something awful might happen. Nemesio stated he occasionally had thoughts he would be better off but had no plan or intent. He stated, they are just thoughts, I would never, I just feel bad sometimes. ACI information was reviewed with Nemesio. A safely plan was created by Nemesio and fourdrinier machine operator. Involuntary Hold Information Hold Status: Legal Status: 96 Hour Hold Date/Time Hold Expires: 11/28/24 @ 10:40 Mental Status Exam MSE Comments: This is a slender white male in hospital scrubs with adequate grooming and limited eye contact. No abnormal movements except for mild psychomotor retardation. Cooperative with exam mild distress. Speech was decreased rate and volume. Mood described as better, affect congruent and slightly less flat/subdued. Thought process organized. Thought content: Patient denied current suicidal or homicidal ideation, there were no delusions reported or noted, he denied any auditory or visual hallucinations. Attention and concentration were intact and memory appeared reliable but none were formally tested. He is alert and oriented x 3. Insight appeared fair, judgment was limited and impulse control was impaired. Discharge Data Studies Completed and Pending: Laboratory Results WBC 3.79 10^3/uL (3.2 9-11.43) 11/22/24 10:27 RBC 5.68 10^6/uL (3.8 5-5.65) H 11/22/24 10:27 Hgb 16.80 g/dL (11.27 -16.99) 11/22/24 10:27 Hct 49.7 % (37-53) 11/22/24 10:27 MCV 87.5 fl (82-101) 11/22/24 10:27 MCH 29.6 pg (27-33) 11/22/24 10:27 MCHC 33.8 g/dL (30-55) 11/22/24 10:27 RDW 12.0 % (12.1-15.1 ) L 11/22/24 10:27 Plt Count 216 10^3/cmm (157 -399) 11/22/24 10:27 MPV 10.1 fL (7.4-10.4 ) 11/22/24 10:27 Neut % (Auto) 61.2 % 11/22/24 10:27 Lymph % (Auto) 25.3 % 11/22/24 10:27 [place] % (Auto) 10.3 % 11/22/24 10:27 Eos % (Auto) 1.8 % 11/22/24 10:27 Baso % (Auto) 1.1 % 11/22/24 10:27 Neut # (Auto) 2.32 10^3/uL (1.8 -7.7) 11/22/24 10:27 Lymph # (Auto) 1.0 10^3/uL (0.8- 4.8) 11/22/24 10:27 [place] # (Auto) 0.4 10^3/uL (0.2- 0.9) 11/22/24 10:27 Eos # (Auto) 0.1 10^3/uL (0.0- 0.8) 11/22/24 10:27 Baso # (Auto) 0.0 10^3/uL (0.0- 0.1) 11/22/24 10:27 Nucleated RBC % (a uto) 0 % 11/22/24 10: Nucleated RBCs # 0.0 /100WBC 11/22/24 10:27 Sodium 141 mmol/L (136-1 45) 11/22/24 10:27 Potassium 4.0 mmol/L (3.5-5 .1) 11/22/24 10: Chloride 105 mmol/L (98-10 7) 11/22/24 10: Carbon Dioxide 25 mmol/L (22-29) 11/22/24 10: Anion Gap 15.0 (5-19) 11/22/24 10: BUN 9 mg/dL (6-20) 11/22/24 10: Creatinine 1.0 mg/dL (0.7-1. 2) 11/22/24 10:27 GFR Calculation 91.8 mL/min (90-1 30) 11/22/24 10:27 Glucose 106 mg/dL (65-115 ) 11/22/24 10:27 Calculated Osmolal ity 291 mOsm/kg (285- 295) 11/22/24 10:27 Calcium 9.2 mg/dL (8.5-10 .5) 11/22/24 10: Total Bilirubin 0.4 mg/dL (0.15-1 .2) 11/22/24 10:27 AST 8 U/L (0-40) 11/22/24 10:27 ALT 12 U/L (0-41) 11/22/24 10:27 Alkaline Phosphata se 49 U/L (40-130) 11/22/24 10:27 Total Protein 6.2 g/dL (6.6-8.7 ) L 11/22/24 10:27 Albumin 4.3 g/dL (3.5-5.2 ) 11/22/24 10:27 Globulin 1.9 g/dL (1.3-4.6 ) 11/22/24 10:27 Salicylates < 0.3 mg/dL (3-10 ) L 11/22/24 10:27 Urine Opiates Scre en Negative ng/mL (N egative) 11/22/24 10:40 Acetaminophen < 5.0 ug/mL (10-3 0) L 11/22/24 10:27 Ur Barbiturates Sc reen Negative ng/mL (N egative) 11/22/24 10:40 Ur Phencyclidine S crn Negative ng/mL (N egative) 11/22/24 10:40 Ur Amphetamines Sc reen Negative ng/mL (N egative) 11/22/24 10:40 U Benzodiazepines Scrn Negative ng/mL (N egative) 11/22/24 10:40 Urine Cocaine Scre en Negative ng/mL (N egative) 11/22/24 10:40 U Marijuana (THC) Screen Negative ng/mL (N egative) 11/22/24 10:40 Ethyl Alcohol < 10 mg/dL (0-10) 11/22/24 10:27 Vitals: Last Vital Signs Temp 98.4 F 11/28/24 06:00 Pulse 88 11/28/24 06:00 Resp 18 11/28/24 06:00 BP 103/68 11/28/24 06:00 Pulse Ox 98 11/28/24 06:00 O2 Del Method Room Air 11/28/24 06:00 Discharge Plan Discharge Patient Disposition: Home Condition: Stable Prescriptions: Continued No Known Home Medications Referrals: Afsaneh Babin LPC [Therapist, Psychology] - 11/29/24 5:00 pm Discharge Diet: Regular Discharge Activity: Resume usual activity Patient Instructions: Opioid Safety, Pain Management, Patient Portal & Contreras Instructions Discharge Attestations NPU Time Spent in Discharge Care*: less than 30 min Specific Discharge Activities: Specific discharge activities: educating patient, discussing with pcp/other providers, discussing with test case developer/social workers/dc planners, documenting/other paperwork and evaluating patient/reviewing data Coding Level of Care Code Acute Code for Chg Fwd Diagnoses Suicidal ideation R45.851 Social anxiety disorder F40.10 Generalized anxiety disorder F41.1 Major depressive disorder, recurrent F33.9 Marital/partner relational problem Z63.0
[2024-11-28] MEDS: FLU VACC TS2025-26(6MOS UP)/PF 45 MCG/0.5 ML SYRINGE IM (09:38)
[2024-11-28 12:04] VITALS: BP 103/68; PULSE 88; RESP 18; TEMP 36.9; O2SAT 98
== END 2024-11-28 12:45 | disposition home or self-care (01) | DRG 885 ==
LOC: ER 10:44 → NP 10:51
PROVIDERS: Admitting Provider Psychiatry & Neurology Psychiatry; Emergency Provider Physician Assistant; Visit Provider Psychiatry & Neurology Psychiatry
DX: F33.1 Major depressive disorder, recurrent, moderate (principal); R45.851 Suicidal ideations; F40.11 Social phobia, generalized; Z63.0 Problems in relationship with spouse or partner
CPT/HCPCS: 36415; 80053; 80306; 80307; 85025; 90471; 97150; 97165; 99285